=== PATIENT | male | born 1995 | race Caucasian/White ===

== ENCOUNTER → 2023-09-08 11:53 | Outpatient (BNVA) | payer MEDICAID, SELFPAY | PROVIDERS: Visit Provider Neurological Surgery | DX: S22.41XA Multiple fractures of ribs, right side, initial encounter for closed fracture (principal); X58.XXXA Exposure to other specified factors, initial encounter | CPT/HCPCS: 71046 ==

== ENCOUNTER 2025-04-03 16:45 | Outpatient (CLI) | payer MEDICAID, SELFPAY ==
[2025-04-03 20:35] LABS: Hepatitis B Core AB, Total Non-Reactive (Nonreactive)
[2025-04-03 20:39] LABS: Hepatitis C Virus Antibody Non-Reactive (Nonreactive)
== END 2025-04-03 16:46 | disposition home or self-care (01) ==
DX: L93.0 Discoid lupus erythematosus (principal); M06.9 Rheumatoid arthritis, unspecified
CPT/HCPCS: 36415; 85613; 85730; 86160; 86162; 86235; 86255; 86376; 86431; 86704; 86803